=== PATIENT | male | born 1990 | race Caucasian/White ===

== ENCOUNTER 2018-01-02 09:13 | Emergency (ER) | payer BC ==
[~2018-01-02] VITALS: Ht 180.3 cm; Wt 77.1 kg
[2018-01-02 10:36] LABS: ABSOLUTE BASOPHILS 0.1 thou/uL (0.0-0.2); ABSOLUTE LYMPHOCYTES 1.7 thou/uL (0.8-5.3); ABSOLUTE MONOCYTES 0.7 thou/uL (0.0-1.2); ABSOLUTE NEUTROPHILS 6.5 thou/uL (1.6-8.1); BASOPHILS 0.6 %; EOSINOPHILS 0.5 %; HEMATOCRIT 45.9 % (42.0-52.0); HEMOGLOBIN 15.9 gm/dL (14.0-18.0); LYMPHOCYTES 18.9 %; MCH 31.5 pg (26.0-34.0); MCHC 34.7 g/dL (28.0-37.0); MCV 90.8 fL (80.0-100.0); MONOCYTES 8.2 %; MPV 7.7 fl. (7.2-11.1); NUCLEATED RBCS 0 /100WBC; PLATELET COUNT* 354 thou/uL (150-400); POLYS 71.8 %; RBC 5.06 mil/uL (4.50-6.00); RDW-CV 12.7 % (10.5-14.5)
[2018-01-02 10:46] LABS: CALCIUM 9.5 mg/dL (8.5-10.1); POTASSIUM 4.2 mmol/L (3.5-5.1)
[2018-01-02 10:51] LABS: ALBUMIN 4.7 g/dL (3.4-5.0); TOTAL BILIRUBIN 0.4 mg/dL (<0.1-1.0); TOTAL PROTEIN 8.1 g/dL (6.4-8.2)
[2018-01-02] MEDS ORDERED: AMOXICILLIN875 MG PO (12:06)
[2018-01-02] MEDS ORDERED: IBUPROFEN 800800 MG PO (12:06)
[2018-01-02 12:32] VITALS: BP 115/65
== END 2018-01-02 12:33 | disposition home or self-care (01) ==
LOC: M.ERS 09:13
PROVIDERS: Personal Emergency Response Attendant
DX: G44.209 Tension-type headache, unspecified, not intractable (principal); F17.210 Nicotine dependence, cigarettes, uncomplicated

== ENCOUNTER 2018-02-15 10:24 | Emergency (ER) | payer BC ==
[~2018-02-15] VITALS: Ht 177.8 cm; Wt 77.1 kg
[~2018-02-15 10:24] MED LIST: AMOXICILLIN875 MG PO; IBUPROFEN 800800 MG PO
[2018-02-15] MEDS ORDERED: ABX (10:40)
[2018-02-15 11:02] VITALS: BP 125/71
== END 2018-02-15 11:03 | disposition home or self-care (01) ==
LOC: M.ERS 10:24
DX: R11.2 Nausea with vomiting, unspecified (principal); R19.7 Diarrhea, unspecified; F17.210 Nicotine dependence, cigarettes, uncomplicated

== ENCOUNTER 2020-10-04 12:38 | Emergency (ER) | payer BC ==
[~2020-10-04] VITALS: Ht 177.8 cm; Wt 77.1 kg
[~2020-10-04 12:38] MED LIST changes: +ABX
== END 2020-10-04 13:13 | disposition home or self-care (01) ==
LOC: M.ERS 12:38
DX: U07.1 COVID-19 (principal); F17.210 Nicotine dependence, cigarettes, uncomplicated